=== PATIENT | male | born 1955 | race African-American/Black ===

== ENCOUNTER 2018-11-16 07:25 | Emergency (ER) | payer OTHER ==
[~2018-11-16] VITALS: Ht 190.5 cm; Wt 55.4 kg
[~2018-11-16 07:25] MED LIST: AMLODIPINE; HYDROCHLOROTHIAZIDE; NAPROXEN
[2018-11-16] MEDS ORDERED: SODIUM CHLORIDE 0.9% 1,000 ML IV ONE ×2 (08:24→11:46)
[2018-11-16] MEDS ORDERED: ONDANSETRON HCL 4MG/2ML INJ IV STA (08:24)
[2018-11-16] MEDS ORDERED: FAMOTIDINE 20MG/2ML VIAL IV STA (08:24)
[2018-11-16 09:10] LABS: BASOPHILS % 0.8 % (0.0-2.0); EOSINOPHILS % 1.9 % (0.0-5.0); HEMATOCRIT. 45.4 % (42.0-52.0); HEMOGLOBIN. 15.6 g/dL (14.0-18.0); LYMPHOCYTES % 32.5 % (20.0-50.0); MEAN CORPUSCULAR HEMOGLOBIN 32.8 pg (28.0-32.0); MEAN CORPUSCULAR VOLUME 95.6 fL (80.0-94.0); MEAN PLATELET VOLUME 7.6 fl (7.4-10.4); MONOCYTES % 14.1 % (2.0-8.0); NEUTROPHILS % 50.7 % (40.0-76.0); PLATELET 204 x1000/uL (130-400); RED BLOOD CELL COUNT 4.75 mill/uL (4.7-6.1); RED CELL DISTRIBUTION WIDTH 12.2 % (11.6-14.6)
[2018-11-16 09:19] LABS: CHLORIDE 96 mEq/L (98-107); INR 0.9; PROTHROMBIN TIME 9.4 sec (9.6-11.0)
[2018-11-16 09:29] LABS: CREATINE KINASE 170 IU/L (39-308)
[2018-11-16 09:32] LABS: CREATINE KINASE MB FRACTION 7.7 ng/mL (0.5-3.6)
[2018-11-16 12:30] LABS: CLARITY URINE CLEAR (CLEAR); COLOR URINE DARK YELLOW (YELLOW); KETONES URINE 1+ (NEGATIVE); LEUKOCYTE ESTERASE URINE 2+ (NEGATIVE); NITRITE URINE NEGATIVE (NEGATIVE); OCCULT BLOOD URINE NEGATIVE (NEGATIVE); PH URINE 5.5 (4.5-8.0); PROTEIN URINE 1+ (NEGATIVE); SPECIFIC GRAVITY URINE 1.021 (1.005-1.030)
[2018-11-16 12:49] LABS: *AMPHETAMINES SCREEN URINE NEGATIVE (NEGATIVE)
[2018-11-16 12:50] LABS: *BARBITURATES SCREEN URINE NEGATIVE (NEGATIVE); *BENZODIAZEPINES SCREEN URINE NEGATIVE (NEGATIVE); *COCAINE SCREEN URINE NEGATIVE (NEGATIVE); METHADONE URINE SCREEN NEGATIVE (NEGATIVE); OPIATES URINE SCREEN NEGATIVE (NEGATIVE)
[2018-11-16 12:51] LABS: CANNABINOID URINE SCREEN PRESUMTIVE POSITIVE (NEGATIVE); PHENCYCLIDINE URINE SCREEN NEGATIVE (NEGATIVE)
[2018-11-16] MEDS ORDERED: CEFTRIAXONE 1 G PREMIX 50 ML IV ONE (13:15)
[2018-11-16 14:30] VITALS: BP 180/101
== END 2018-11-16 14:46 | disposition home or self-care (01) ==
LOC: ER 07:25
DX: R10.9 Unspecified abdominal pain (principal); R11.10 Vomiting, unspecified; R19.7 Diarrhea, unspecified; N39.0 Urinary tract infection, site not specified; I10 Essential (primary) hypertension
CPT/HCPCS: 36415; 71045; 74176; 80053; 80305; 81003; 82550; 82553; 83690; 83880; 84484; 85025; 85610; 87086; 96361; 96365; 96375; 99284; J0696; J2405; J3490; J7030; Z7610